=== PATIENT | female | born 1995 | race Caucasian/White ===

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

== ENCOUNTER 2017-08-08 21:51 | Emergency (ER) | payer MEDICAID ==
[~2017-08-08] VITALS: Ht 144.8 cm; Wt 103.0 kg
[2017-08-08 22:33] LABS: HCG,QUAL RESULT NEGATIVE (NEGATIVE)
[2017-08-08 22:45] LABS: APPEARANCE,URINE CLOUDY (CLEAR); BILIRUBIN,URINE NEGATIVE (NEGATIVE); GLUCOSE, URINE (UA) NEGATIVE (NEGATIVE); KETONES,URINE NEGATIVE (NEGATIVE); LEUKOCYTE ESTERASE ,URINE NEGATIVE (NEGATIVE); NITRATE,URINE NEGATIVE (NEGATIVE); OCCULT BLOOD,URINE TRACE (NEGATIVE); PROTEIN,URINE NEGATIVE (NEGATIVE)
[2017-08-08 22:46] LABS: BACTERIA,URINE Few /HPF (None Seen); SQUAMOUS EPITHELIAL CELL,UR Moderate /LPF (None Seen)
[2017-08-08] MEDS ORDERED: CEPHALEXIN MONOHYDRATE 500 MG CAPSULE PO ONE (23:00)
[2017-08-08 23:02] VITALS: BP 120/74
== END 2017-08-08 23:33 | disposition home or self-care (01) ==
LOC: EMS 21:53
DX: N39.0 Urinary tract infection, site not specified (principal)
CPT/HCPCS: 87086; 99284

== ENCOUNTER 2018-07-21 18:26 | Emergency (ER) | payer MEDICAID, OTHER ==
[~2018-07-21] VITALS: Ht 147.3 cm; Wt 44.5 kg
[2018-07-21] MEDS ORDERED: DiphenhydrAMINE HCL 50 MG/ML VIAL IM ONE (20:30)
[2018-07-21] MEDS ORDERED: DiphenhydrAMINE/ZINC ACET 30 GM CREAM TP ONE (20:30)
[2018-07-21] MEDS ORDERED: PredniSONE 20 MG TABLET PO ONE (20:30)
[2018-07-21 20:32] VITALS: BP 114/80
== END 2018-07-21 21:15 | disposition home or self-care (01) ==
LOC: EMS 18:26
DX: L50.9 Urticaria, unspecified (principal); R19.7 Diarrhea, unspecified
CPT/HCPCS: 96372; 99283; J1200; J7512

== ENCOUNTER 2021-02-10 22:40 | Emergency (ER) | payer OTHER ==
[~2021-02-10] VITALS: Ht 147.3 cm; Wt 54.1 kg
[2021-02-10 23:36] LABS: HEMATOCRIT 41.3 % (36-46); HEMOGLOBIN 13.9 g/dL (12.0-16.0); MEAN CORPUSCULAR HEMOGLOBIN 31.5 pg (26.0-34.0); MEAN CORPUSCULAR HGB CONC 33.7 G/dL (31.0-37.0); MEAN CORPUSCULAR VOLUME 93 fL (80-100); RED BLOOD CELL COUNT(AUTO) 4.42 MIL/uL (4.00-5.20); RED CELL DISTRIBUTION WIDTH 12.7 % (11.5-14.5)
[2021-02-10 23:37] LABS: BASOPHILS % (AUTO) 0.2 % (0.0-2.0); EOSINOPHILS % (AUTO) 0.9 % (1.0-6.0); LYMPHOCYTES # (AUTO) 2.5 K/uL (1.0-4.8); LYMPHOCYTES % (AUTO) 33.7 % (22.0-44.0); MONOCYTES # (AUTO) 0.4 K/uL (0.1-1.0); MONOCYTES % (AUTO) 5.2 % (2.0-9.0); NEUTROPHILS # (AUTO) 4.4 K/uL (1.8-7.7); PLATELET COUNT (AUTO) 177 K/uL (150-450)
[2021-02-10 23:51] LABS: ANION GAP 9 mmol/L (8-16); CALCIUM, TOTAL 9.1 mg/dL (8.8-10.5); CARBON DIOXIDE 27 mmol/L (22-29); CHLORIDE 107 mmol/L (98-107); CREATININE 0.71 mg/dL (0.60-1.30); GLOMERULAR FILTR. RATE CALC > 60 mL/min (>60); GLUCOSE,RANDOM 92 mg/dL (70-110); POTASSIUM 4.3 mmol/L (3.5-5.1); SODIUM SERUM 143 mmol/L (136-145); UREA NITROGEN, BLOOD 11 mg/dL (7-18)
[2021-02-11 00:03] LABS: ALANINE AMINOTRANSFERASE 22 U/L (12-78); ALBUMIN 3.7 g/dL (3.4-5.0); ALKALINE PHOSPHATASE 67 U/L (46-116); ASPARTATE AMINOTRANSFERASE 11 U/L (15-37); BILIRUBIN,TOTAL 0.4 mg/dL (0.1-1.0); HCG,QUANTITATIVE < 1 mIU/mL (0-6); TOTAL PROTEIN, SERUM 7.3 g/dL (6.4-8.2)
[2021-02-11] MEDS ORDERED: HydrOXYzine PAMOATE 25 MG CAPSULE PO ONE (00:15)
[2021-02-11 00:17] LABS: APPEARANCE,URINE CLOUDY (CLEAR); BILIRUBIN,URINE NEGATIVE (NEGATIVE); GLUCOSE, URINE (UA) NEGATIVE (NEGATIVE); KETONES,URINE NEGATIVE (NEGATIVE); LEUKOCYTE ESTERASE ,URINE TRACE (NEGATIVE); NITRATE,URINE NEGATIVE (NEGATIVE); OCCULT BLOOD,URINE NEGATIVE (NEGATIVE); PROTEIN,URINE NEGATIVE (NEGATIVE); UROBILINOGEN,URINE 0.2 mg/dL (<=1.0)
[2021-02-11 00:39] LABS: SQUAMOUS EPITHELIAL CELL,UR Few /LPF (None Seen)
[2021-02-11 00:40] LABS: BACTERIA,URINE Few /HPF (None Seen)
[2021-02-11 00:41] LABS: RBC,URINE None Seen /HPF (0-2)
[2021-02-11 01:57] VITALS: BP 104/63
== END 2021-02-11 03:00 | disposition home or self-care (01) ==
LOC: EMS 22:45
DX: F41.9 Anxiety disorder, unspecified (principal); R00.2 Palpitations
CPT/HCPCS: 71045; 80053; 81001; 84484; 84702; 85025; 93005; 99285; 36415-L1; 36415-TC

== ENCOUNTER 2023-01-31 12:26 | Emergency (ER) | payer OTHER ==
[~2023-01-31] VITALS: Ht 147.3 cm; Wt 55.5 kg
[2023-01-31 12:28] VITALS: TEMP 98.5
[2023-01-31] MEDS ORDERED: IBUP-1492 PO (12:34)
[2023-01-31] MEDS ORDERED: ACETAMINOPHEN 325 MG TABLET PO ONE (13:00)
[2023-01-31] MEDS ORDERED: AMOX TR/POT CLAV 875 MG/125 MG TABLET PO ONE (13:00)
[2023-01-31 13:49] LABS: COVID AG,FIA SOURCE NASAL SWAB
[2023-01-31] MEDS ORDERED: ACET-3385 PO (13:50)
[2023-01-31] MEDS ORDERED: AMOX1TAB16 PO (13:50)
[2023-01-31 14:08] LABS: INFLUENZA TYPE A NEGATIVE FOR TYPE A (NEGATIVE); INFLUENZA TYPE B NEGATIVE FOR TYPE B (NEGATIVE)
[2023-01-31 14:26] VITALS: BP 116/64; PULSE 84; RESP 18
== END 2023-01-31 14:33 | disposition home or self-care (01) ==
LOC: EMS 12:29
DX: H66.92 Otitis media, unspecified, left ear (principal); H60.92 Unspecified otitis externa, left ear; Z20.822 Contact with and (suspected) exposure to COVID-19
CPT/HCPCS: 87430; 87804; 99283

== ENCOUNTER 2024-06-08 12:35 | Emergency (ER) | payer OTHER ==
[~2024-06-08] VITALS: Ht 144.8 cm; Wt 63.6 kg
[~2024-06-08 12:35] MED LIST: ACET-3385 PO; AMOX-457 PO; IBUP-1492 PO
[2024-06-08 13:36] LABS: BASOPHILS % (AUTO) 0.4 % (0.0-2.0); EOSINOPHILS % (AUTO) 0.6 % (1.0-6.0); HEMOGLOBIN 12.5 g/dL (12.0-16.0); LYMPHOCYTES # (AUTO) 2.2 K/uL (1.0-4.8); MEAN CORPUSCULAR HEMOGLOBIN 32.2 pg (26.0-34.0); MEAN CORPUSCULAR HGB CONC 33.9 G/dL (31.0-37.0); MEAN CORPUSCULAR VOLUME 95 fL (80-100); MONOCYTES # (AUTO) 0.4 K/uL (0.1-1.0); MONOCYTES % (AUTO) 5.3 % (2.0-9.0); NEUTROPHILS # (AUTO) 4.8 K/uL (1.8-7.7); NEUTROPHILS % (AUTO) 64.7 % (40.0-70.0); PLATELET COUNT (AUTO) 177 K/uL (150-450); RED BLOOD CELL COUNT(AUTO) 3.89 MIL/uL (4.00-5.20); RED CELL DISTRIBUTION WIDTH 12.6 % (11.5-14.5); WHITE BLOOD COUNT (AUTO) 7.4 K/uL (4.5-11.0)
[2024-06-08 13:38] LABS: ANION GAP 4 mmol/L (8-16); CALCIUM, TOTAL 8.3 mg/dL (8.8-10.5); CARBON DIOXIDE 28 mmol/L (22-29); CHLORIDE 104 mmol/L (98-107); CREATININE 0.98 mg/dL (0.60-1.30); GLOMERULAR FILTR. RATE CALC > 60 mL/min (>60); GLUCOSE,RANDOM 108 mg/dL (70-110); POTASSIUM 3.9 mmol/L (3.5-5.1); SODIUM SERUM 136 mmol/L (136-145); UREA NITROGEN, BLOOD 8 mg/dL (7-18)
[2024-06-08 13:51] LABS: HCG,QUANTITATIVE < 1 mIU/mL (0-6)
[2024-06-08 14:03] LABS: APPEARANCE,URINE CLEAR (CLEAR); BILIRUBIN,URINE NEGATIVE (NEGATIVE); COLOR,URINE LIGHT YELLOW (YELLOW); GLUCOSE, URINE (UA) NEGATIVE (NEGATIVE); KETONES,URINE NEGATIVE (NEGATIVE); LEUKOCYTE ESTERASE ,URINE NEGATIVE (NEGATIVE); NITRATE,URINE NEGATIVE (NEGATIVE); OCCULT BLOOD,URINE NEGATIVE (NEGATIVE); PH,URINE 7.5 (5.0-8.0); PROTEIN,URINE TRACE mg/dL (NEGATIVE); SPECIFIC GRAVITIY, URINE 1.023 (1.003-1.030); UROBILINOGEN,URINE <=1.0 mg/dL (<=1.0)
[2024-06-08] MEDS: ACETAMINOPHEN 325 MG TABLET PO ONE (15:16)
[2024-06-08] MEDS: IBUPROFEN 400 MG TABLET PO ONE (15:16)
[2024-06-08] MEDS ORDERED: SODIUM CHLORIDE 0.9% 100 ML ONE (17:08)
[2024-06-08] MEDS ORDERED: IOHEXOL 350 MG/ML 100 ML VIAL ONE (17:08)
[2024-06-08] MEDS ORDERED: 0.9% SODIUM CHLORIDE 10 ML SYRINGE IVP ONE (17:08)
[2024-06-08 19:30] VITALS: BP 129/70; PULSE 75; RESP 18; TEMP 97.9; O2SAT 99
== END 2024-06-08 20:25 | disposition home or self-care (01) ==
LOC: EMS 12:35
DX: N83.12 Corpus luteum cyst of left ovary (principal); N93.9 Abnormal uterine and vaginal bleeding, unspecified; Z32.02 Encounter for pregnancy test, result negative
CPT/HCPCS: 99285; 74177; 76830; 76856; 80048; 81003; 84702; 85025; 36415; Q9967; J7050

== ENCOUNTER 2024-10-16 11:05 | Emergency (ER) | payer OTHER ==
[~2024-10-16] VITALS: Ht 144.8 cm; Wt 54.5 kg
[~2024-10-16 11:05] MED LIST changes: -AMOX-457 PO
[2024-10-16 11:22] VITALS: BP 103/56; PULSE 81; RESP 18; TEMP 98.6; O2SAT 100
[2024-10-16 11:29] LABS: COVID AG,FIA SOURCE NASAL SWAB
[2024-10-16 11:58] LABS: SARS-COV2 (COVID) ANTIGEN,FIA Negative (Negative)
[2024-10-16 11:59] LABS: INFLUENZA TYPE A NEGATIVE FOR TYPE A (NEGATIVE); INFLUENZA TYPE B NEGATIVE FOR TYPE B (NEGATIVE)
[2024-10-16] MEDS ORDERED: BACL10TA PO (12:35)
[2024-10-16] MEDS ORDERED: AMOX-457 PO (12:36)
[2024-10-16] MEDS ORDERED: BENZ-227 PO (12:37)
[2024-10-16] MEDS ORDERED: FLUT16SP NASAL (12:37)
== END 2024-10-16 12:47 | disposition home or self-care (01) ==
LOC: EMS 11:10
DX: J01.90 Acute sinusitis, unspecified (principal); M62.838 Other muscle spasm; Z20.822 Contact with and (suspected) exposure to COVID-19
CPT/HCPCS: 87804; 99283